=== PATIENT | male | born 1950 | race Caucasian/White ===

== ENCOUNTER → 2017-12-04 | Outpatient (CLI) | payer MEDICARE, OTHER ==
--- NOTE | 2017-12-04 14:26 | Diagnostic Imaging Report ---
PROCEDURE: MRI lumbar spine. TECHNIQUE: Multiplanar, multisequence MRI of the lumbar spine was performed without contrast. INDICATION: Lumbar pain. FINDINGS: There is assumed lumbarization of S1 segment. There is mild right convexity curvature of the lumbar spine. Vertebral body heights and disc spaces are maintained; however, there is diffuse desiccation of lumbar discs. Conus medullaris is unremarkable at the T12 level. There is slight annular bulging of the L1-2 disc without significant spinal or neural foraminal stenosis. At L2-3, there is diffuse disc bulging and endplate spurring which is eccentric toward the left. This results in [id number] left neural foraminal stenosis without significant spinal stenosis. At L3-4, leftward disc bulging also results in [id number] left neural foraminal stenosis. At L4-5, diffuse disc bulging and endplate spurring is associated with degenerative facet arthropathy and ligamentum flavum hypertrophy. This causes moderate trefoil-type spinal stenosis and moderate bilateral neural foraminal stenosis which is greater on the right. At the L5-S1 level, there is also mild annular bulging without significant spinal or neural foraminal stenosis. IMPRESSION: Lumbar spondylosis which is most pronounced at L5-S1 where there is moderate trefoil-type spinal stenosis and bilateral neural foraminal stenosis, greater on the right. There is also moderate left L2-3 and L3-4 neural foraminal stenosis secondary to asymmetric disc bulging. Dictated by: Dictated on workstation # [id number]
--- NOTE | 2017-12-04 14:41 | Diagnostic Imaging Report ---
PROCEDURE: MR imaging cervical spine without contrast. TECHNIQUE: Multiplanar, multisequence MR imaging of the cervical spine was performed without contrast. INDICATION: Chronic neck pain. There is mild left convexity curvature of the cervical spine. There is reversal of cervical lordosis. There is diffuse desiccation of cervical disc. Mild disc bulging, endplate spurring is seen at the C3-C4 level resulting in mild bilateral neural foraminal stenosis. At C4-C5 disc bulging and endplate spurring results in mild spinal stenosis and mild to moderate bilateral neural foraminal stenosis. At the C5-C6 level, there is also flattening of the ventral thecal sac with mild right neural foraminal stenosis. There is mild bulging of the C6-C7 and C7-T1 disc without significant spinal stenosis. There is no abnormal signal intensity seen within the cervical spinal cord. IMPRESSION: Reversal of cervical lordosis maybe secondary to muscle spasm or positioning. This may also be on the basis of chronic degenerative change with degenerative disc disease causing mild bilateral C3-C4 neural foraminal stenosis with mild spinal and moderate bilateral neural foraminal stenosis at the C4-C5 level. Degenerative changes also result in mild right C5-C6 neural foraminal stenosis without evidence of spinal cord injury or enlargement. Dictated by: Dictated on workstation # [id number]
== END ==
LOC: RAD 12:48
PROVIDERS: ATTEND Orthopaedic Surgery
DX: M48.02 Spinal stenosis, cervical region (principal); M48.07 Spinal stenosis, lumbosacral region; M50.31 Other cervical disc degeneration, high cervical region; M47.812 Spondylosis without myelopathy or radiculopathy, cervical region; M47.817 Spondylosis without myelopathy or radiculopathy, lumbosacral region; M51.26 Other intervertebral disc displacement, lumbar region
CPT/HCPCS: 72141; 72148